=== PATIENT | male | born 1950 | race Caucasian/White ===

== ENCOUNTER 2016-10-18 19:33 | Emergency (ER) | payer MEDICARE ==
[~2016-10-18] VITALS: Ht 162.6 cm; Wt 84.5 kg
[2016-10-18 19:36] VITALS: BP 153/102; PULSE 68; RESP 16; O2SAT 98
[2016-10-18 20:03] VITALS: BP 147/95; PULSE 66; RESP 18; O2SAT 97
[2016-10-18 20:12] LABS: BASOPHILS % (AUTO) 0.7 % (0-3); EOSINOPHILS % (AUTO) 1.6 % (0-5); Mean Corpuscular Hemoglobin 28.4 pg (27.0-35.0); Mean Corpuscular Volume 85.9 fL (81-100); NEUTROPHILS % (AUTO) 60.2 % (40-74); Platelet Count 206 bil/L (150-400)
--- NOTE | 2016-10-18 20:26 | DRSVH ---
PROCEDURE: X-RAY CHEST ONE VIEW, PORTABLE ([id number]) INDICATIONS: CP TECHNIQUE: One view of the chest was acquired. COMPARISON: None. FINDINGS: Surgical changes and devices: None. Lungs and pleura: No pleural effusions or pneumothorax. Lungs are clear cute opacities. 1.2 cm irr egular nodule noted in the right upper lobe. Mediastinum: Mediastinal contours appear normal. Heart size is normal. Bones and chest wall: No suspicious bony lesions. Overlying soft tissues appear unremarkable. IMPRESSION: 1. No acute cardiopulmonary disease process. 2. 1.2 cm irregular nodule in the right upper lobe. Recommend standard 2 view of the chest when cli nically feasible. Dictated by: Betty Davidson MD, PhD on 10/18/2016 at 20:23 Approved by: Betty Davidson MD, PhD on 10/18/2016 at 20:25
[2016-10-18 20:31] LABS: TROPONIN T < 0.010 ug/L (0.0-0.011)
[2016-10-18 20:41] LABS: Magnesium 2.1 mg/dL (1.6-2.6)
--- NOTE | 2016-10-18 20:51 | ED.REPORT ---
HPI-Chest Pain 40 and Over Date of Service Oct 18, 2016 ED Provider: Libby Payne MD A 65 year old male with a history of stage I renal failure, hypothyroidism and hypertension presents to the ED complaining of chest pain that began two months ago but became increasingly worse at 0600. The episode of pain lasted approx. 5 hours. Patient was sitting on the bus when the pain first began. He described that pain saying it feels as if he 'is running in freezing temperatures". The episodes of pain are often associated with general malaise and fatigue. The patient's reports that these episodes are associates with stress and exertion. He currently takes Lisinopril, Synthroid and levothyroxine. Patient has been unable to take Synthroid for the past 3 months and states that he has gained weight. Patient was sent from Urgent Care for further workup. Patient also reports sleeping approx. 4 hours per night. Nursing Notes Stated Complaint: CHEST PAIN FROM [facility] Chief Complaint: Chest Pain Nursing Notes Reviewed: Yes Allergies: Uncoded Allergies: SODIUM BENTHYL (Adverse Reaction, Intermediate, Violent, 10/18/16) Scheduled Levothyroxine (Levothyroxine) 150 Mcg Tablet 150 MCG PO DAILY Lisinopril / HCTZ 10-12.5 mg (Lisinopril / HCTZ 10-12.5 mg) 1 Each Tablet 1 EACH PO DAILY Saw/Vit E/Sod Qian/Lyc/Beta/Pyg (Prostate Health Caplet) 1 Each Tablet 1 EACH PO DAILY Tamsulosin (Flomax) 0.4 Mg Capsule 0.4 MG PO DAILY General Time Seen by MD: 20:43 Chief Complaint Chest pain Hx Obtained From: Patient Arrived By: Walk-in Sudden in Onset?: Yes Onset Occurred: 13 - 16 hours ago Symptom Duration: 5 - 8 hours (5 hrs ) Location: : Chest left: Chest right Quality: Painful Radiation: : Does not radiate Migration/Movement: Reports: None Severity: Current: Mild Severity: Maximum: Moderate Additional Notes: Insomnia Fatigue Pertinent Negative: Pt denies other symptoms Exacerbated by: Exertion, mild Recent Healthcare: No recent doctor visit, No recent hospitalization Risk Factors )( CAD Risk Stratification Risk factors reviewed )( TAD Risk Stratification Risk factors reviewed )( PE Risk Stratification Risk factors reviewed Past Medical History Past Medical History Stage I renal failure Hypertension Nephrolithiasis BPH Hypothyroidism Family History Hyperlidemia - Mother Hypertension/OR/enlarged heart - Father Smoking History Never Smoker Social History Alcohol Use: Denies alcohol use Drug Use: Denies drug use Other Social History: Good social support, Local resident Ambulatory Status Independent Review of Systems Constitutional: Reports: Malaise, Denies: Chills, Fever Respiratory: Denies: Shortness of breath Cardiovascular: Reports: Chest pain GI: Denies: Abdominal pain, Nausea, Vomiting Neurologic: Denies: Change LOC Psychiatric: Reports: Stress Complete sys rev & neg: except as marked. Male: Reports Scrotal swelling (Prostate), Reports Urination decreased ( Urinary retention ) Physical Exam Initial Vital Signs Vital Signs (First) Date Time Temp Pulse Resp B/P Pulse Ox O2 Delivery O2 Flow Rate FiO2 10/18/16 19:36 37.0 68 16 153/102 98 Room Air Initial VS: Reviewed Head / Eyes: Atraumatic, Normocephalic, PERRL Extremities: Vascular intact, Neuro intact, No swelling, No tenderness Skin: Warm, Dry, No cyanosis Neurologic: Alert, Oriented, Nonfocal Psychiatric: Mood/affect normal, Behavior normal, Normal thought content General/Constitutional: Awake, Alert Respiratory / Chest: Atraumatic, Breath sounds NL, Breath sounds = bilat Cardiovascular: Heart rate NL, Regular rhythm, Heart sounds NL, No murmurs CARDIO: No lower extremity edema No displaced PMI Abdomen: Atraumatic, Soft, Non-tender Interpretation & Diagnostics Lab Results Interpretation Result Diagram: 10/18/16195410/18/161954 Test 10/18/16 19:55 10/18/16 22:00 White Blood Count 6.1th/mm3 (3.8-10.1) Red Blood Count 5.60mil/mm3 (4.40-5.80) Hemoglobin 15.9g/dL (13.8-17.2) Hematocrit 48.1% (41.0-50.0) Mean Corpuscular Volume 85.9fL (81-100) Mean Corpuscular Hemoglobin 28.4pg (27.0-35.0) Mean Corpuscular Hemoglobin Concent 33.1% (32.0-37.0) Red Cell Distribution Width 14.7% (12.3-15.4) Platelet Count 206bil/L (150-400) Neutrophils (%) (Auto) 60.2% (40-74) Lymphocytes (%) (Auto) 25.8% (14-46) Monocytes (%) (Auto) 11.0% (4-12) Eosinophils (%) (Auto) 1.6% (0-5) Basophils (%) (Auto) 0.7% (0-3) Sodium Level 138mEq/L (134-144) Potassium Level 4.1mEq/L (3.5-5.2) Chloride Level 98mEq/L (97-108) Carbon Dioxide Level 23mmol/L (18-29) Blood Urea Nitrogen 17mg/dL (8-27) Creatinine 1.48mg/dL (0.76-1.27) Estimat Glomerular Filtration Rate 50mL/min (>59) Glucose Level 99mg/dL (60-99) Calcium Level 9.0mg/dL (8.5-10.1) Magnesium Level 2.1mg/dL (1.6-2.6) Total Bilirubin 0.5mg/dL (0.0-1.2) Aspartate Amino Transf (AST/SGOT) 29U/L (0-50) Alanine Aminotransferase (ALT/SGPT) 30U/L (0-44) Alkaline Phosphatase 75U/L (25-160) Total Protein 7.4g/dL (6.4-8.4) Albumin 4.6g/dL (3.4-5.0) Thyroid Stimulating Hormone (TSH) 139.500uIU/mL (0.450-4.500) Hold Varma Top Tube Received (Received) Troponin T 0.010ug/L (0.0-0.011) ECG Interpretation ECG Interpretation: Normal Sinus rhythm Rate 66 Time: 21:04 Interpreted by: ED physician X-Ray Chest Interpretation Chest Xray Interpretation: IMPRESSION: 1. No acute cardiopulmonary disease process. 2. 1.2 cm irregular nodule in the right upper lobe. Recommend standard 2 view of the chest when clinically feasible. Dictated by: Betty Davidson MD, PhD on 10/18/2016 at 20:23 Interpretation / Wet Read by: Interpret - Radiologist Re-Eval/Medical Decision Time of Eval: 21:04 Patient Status: Condition improved Re-Evaluation/Progress Note: Patient is rechecked. He is informed of his results and diagnosis. All of the patient's questions are adressed. He understands and agrees with the treatment plan to admit. Counseled Regarding: Diagnosis, Lab results, Need for follow-up, When/why to return to ED Discharge & Departure Primary Impression: Hypothyroidism Hypothyroidism type: unspecified Qualified Code: E03.9 - Hypothyroidism, unspecified Additional Impressions: Non-cardiac chest pain Incidental pulmonary nodule Disposition: Home Discharge Condition All VS Reviewed: Yes Condition: Improved Patient Instructions: Hypothyroidism (ED) Additional Instructions: Thank you for trusting us with your care this afternoon. Your emergency department evaluation including EKG, lab work and chest X-ray are reassuring that there is no current cause for concern at this time and your symptoms are likely due to hypothyroidism. Schedule a follow up with a primary care physician in our residency clinic in the next 2-3 weeks for a recheck. Please keep your scheduled apt with Dr Kowalski. If your heart symptoms are not better with the thyroid medicine, he is the perfect doctor to help figure out heart issues. Please return to the emergency department immediately for any new or worsening conditions including any difficulty breathing, weaknesses, SOB, numbness/ tingling, vomiting, fevers, or chest pain. Referrals: [facility] Scribe Attestation Portions of this note were transcribed by Ever Brower. I, Dr. Payne personally performed the history, physical exam and medical decision-making; I reviewed and confirmed the accuracy of the information in the transcribed note. Signed by: Judie Mcdonnell, 10/18/16 2300. Libby Payne MD Oct 18, 2016 20:50 EVER BROWER Oct 18, 2016 21:03
[2016-10-18 21:19] VITALS: BP 144/87; PULSE 71; RESP 15; O2SAT 95
[2016-10-18] MEDS ORDERED: LISI1TAB7 PO (22:57)
[2016-10-18] MEDS ORDERED: LEVO150T5 PO (22:57)
[2016-10-18] MEDS ORDERED: SAW/1TAB2 PO (23:02)
[2016-10-18] MEDS ORDERED: TAMS0.4C98 PO (23:02)
[2016-10-18 23:11] VITALS: BP 138/87; PULSE 67; RESP 16; O2SAT 96
== END 2016-10-18 23:11 | disposition home or self-care (01) ==
LOC: SED 19:33
DX: E03.9 Hypothyroidism, unspecified (principal); R07.89 Other chest pain; R91.1 Solitary pulmonary nodule; I12.9 Hypertensive chronic kidney disease with stage 1 through stage 4 chronic kidney disease, or unspecified chronic kidney disease; N18.1 Chronic kidney disease, stage 1; Z88.8 Allergy status to other drugs, medicaments and biological substances

== ENCOUNTER 2017-02-12 00:48 | Day surgery (SDC) | payer MEDICARE ==
[2017-02-12] VITALS (13 sets, daily range): BP systolic 98–130; BP diastolic 65–83; PULSE 66–77; RESP 12–20; O2SAT 92–97
[~2017-02-12] VITALS: Ht 165.1 cm; Wt 81.8 kg
[~2017-02-12 00:48] MED LIST: ASPI-973 PO; LEVO150T5 PO; LISI1TAB7 PO; METO50TA3 PO; NITR0.4T SL; PLAN450T PO; SAW/1TAB2 PO; TAMS0.4C98 PO
[2017-02-12 07:22] LABS: BASOPHILS % (AUTO) 0.6 % (0-3); EOSINOPHILS % (AUTO) 1.8 % (0-5); Mean Corpuscular Hemoglobin 28.3 pg (27.0-35.0); Mean Corpuscular Volume 81.3 fL (81-100); NEUTROPHILS % (AUTO) 58.2 % (40-74); Platelet Count 186 bil/L (150-400)
[2017-02-12] MEDS ORDERED: Nitroglycerin 50,000 mcg/250 mL D5W Premix IV ONE ×2 (07:44→08:45)
[2017-02-12] MEDS ORDERED: Heparin 1,000 Units/500 mL NS Premix IV ONE ×2 (07:44→08:44)
[2017-02-12] MEDS ORDERED: IBUP200C PO (07:47)
--- NOTE | 2017-02-12 07:48 | NUR ---
Admit Admitted to [facility] about 0700. VSS. Denies pain. Tele SR. IVs started and labs sent. Procedure and recovery reviewed and verbalizes understanding. Pt. very anxious. Comfort measures provided and family at bedside. Questions answered.
[2017-02-12] MEDS ORDERED: Heparin 10,000 Unit/1,000 mL NS Premix IV ONE (08:45)
[2017-02-12] MEDS ORDERED: Heparin 1,000 Unit/mL 10 mL Inj ONE (09:02)
[2017-02-12] MEDS ORDERED: fentaNYL-PF 50 mCg/mL 2 mL Inj ONE ×2 (09:02→09:17)
--- NOTE | 2017-02-12 10:06 | DI95 ---
[address] [address] INTERVENTIONAL CARDIAC CATHETERIZATION PATIENT: CADE HINTON : 1950 MR#: [id number] ADMIT: 02/12/2017 JOB ID: [id number] DATE OF SERVICE: 02/12/2017 PROCEDURE: 1. Selective right and left coronary angiography. 2. Left heart catheterization. 3. Percutaneous intervention on the left anterior descending. INDICATION: Abnormal stress test. PROCEDURAL DETAILS: The reader and the coders are refer to the procedure log that enumerates these completely. Briefly, a 6-Chinese system, right femoral approach, standard Christopher catheters and a wire guide. ANGIOGRAPHIC FINDINGS: 1. Left main: Mild 20% disease. 2. LAD: In its mid segment past the first major diagonal has an 80% to 90% lesion. The rest of the vessel has minor luminal irregularities. 3. Circumflex is nondominant in its proximal segment. It is ectatic but no critical stenosis. 4. Right coronary artery is dominant. It has mild luminal irregularities and mild ectasia. No critical stenosis is noted. 5. Left heart catheterization revealed an elevated LVEDP of 25. There was no gradient upon pullback. INTERVENTIONAL REPORT: We then did an intervention on the LAD. A Runthrough wire was used to cross this lesion, which was pre-dilated with a 2.0 balloon and then stented with a 3.5 x 15 mm Xience drug-coated stent delivered at 12 atmospheres with excellent angiographic results. The patient is advised to stay on dual antiplatelet therapy for at least six months post procedure.
--- NOTE | 2017-02-12 10:15 | NUR ---
Received Pt. to [facility] about 0850. Returned at 1000. VSS. Denies pain. Tele SR. Right groin stable without bleeding or hematoma. Refusing fluids at this time. Family at bedside. Groin precautions reviewed and frequent reminders given. Continue to monitor per orders.
[2017-02-12] MEDS ORDERED: Ondansetron 2 mg/mL 2 mL Inj IVPUSH PRN (11:05)
[2017-02-12] MEDS ORDERED: Atropine 1 mg/10 mL (Code) Syringe IVPUSH PRN (11:05)
[2017-02-12] MEDS ORDERED: Clopidogrel 300 mg Tablet (LOADING DOSE) PO ONE (11:05)
[2017-02-12] MEDS ORDERED: 0.9% Sodium Chloride 400 ML (4 HRS) IV ONE (11:05)
[2017-02-12] MEDS ORDERED: 0.9% Sodium Chloride 250 ML BOLUS IV PRN (11:05)
[2017-02-12] MEDS ORDERED: Sodium Chloride LOK Flush 10 mL Syringe IVFLUSH PRN (11:05)
[2017-02-12] MEDS ORDERED: CLOP75TA3 PO (13:03)
[2017-02-12] MEDS ORDERED: LEVO150T5 PO (13:07)
[2017-02-12] MEDS ORDERED: SAW/1TAB2 PO (13:07)
[2017-02-12] MEDS ORDERED: TAMS0.4C98 PO (13:07)
[2017-02-12] MEDS ORDERED: LISI1TAB7 PO (13:07)
--- NOTE | 2017-02-12 15:13 | NUR ---
Discharge Bedrest complete at 1200. Pt. up in bathroom and gann at 1230 and tolerated without change in groin.Taking po well. Pt. recovery complete at 1400, no change in groin. Dr. Kowalski stated he would be there in the next hour. Dr. Kowalski in about 1445. Discharge instructions given, see sheets and verbalizes understanding. IVs discontinued intact. Discharged ambulatory with family and all belongings at 1513 in no distress.
== END 2017-02-12 23:59 | disposition home or self-care (01) ==
LOC: SOUO 00:48
PROVIDERS: ATTEND Internal Medicine Cardiovascular Disease
DX: I25.10 Atherosclerotic heart disease of native coronary artery without angina pectoris (principal); E78.5 Hyperlipidemia, unspecified; I10 Essential (primary) hypertension; E03.9 Hypothyroidism, unspecified; N40.1 Benign prostatic hyperplasia with lower urinary tract symptoms; Z87.891 Personal history of nicotine dependence; Z79.82 Long term (current) use of aspirin
CPT/HCPCS: 36415; 80048; 85025; 93005; 93458; 99152; 99153; C1725; C1760; C1769; C1874; C1887; C9600; J1200; J1644; J2060; J2250; J3010; J7030; Q9967